=== PATIENT | female | born 1975 | race Caucasian/White ===

== ENCOUNTER 2017-09-04 01:03 | Emergency (ER) | payer MEDICAID ==
[~2017-09-04] VITALS: Ht 165.1 cm; Wt 59.1 kg
[2017-09-04 01:18] VITALS: BP 111/79
[2017-09-04 02:12] LABS: URINE HCG NEGATIVE (NEG)
== END 2017-09-04 02:47 ==
LOC: ER 01:04
DX: Z32.02 Encounter for pregnancy test, result negative (principal); F17.200 Nicotine dependence, unspecified, uncomplicated; Z88.1 Allergy status to other antibiotic agents
CPT/HCPCS: 81025; 99283; J7030

== ENCOUNTER 2019-06-25 22:51 | Emergency (ER) | payer MEDICAID ==
[~2019-06-25] VITALS: Ht 165.1 cm; Wt 61.4 kg
[~2019-06-25 22:51] MED LIST: ACET1TAB12 PO; AMIT-189 PO; CLON-529 PO; DEXT10TA8 PO; DISU250T7 PO; LORA1TAB PO
[2019-06-25] MEDS ORDERED: magnesium oxide 400mg tablet PO ONE (23:00)
[2019-06-25] MEDS ORDERED: phenobarbital inj 260 MG in normal saline 100ml IV soln 100 ML IV ONE (23:00)
[2019-06-25] MEDS ORDERED: normal saline 1000ML IV soln IVB ONE (23:00)
[2019-06-25] MEDS ORDERED: thiamine 100mg tablet PO ONE (23:00)
[2019-06-25 23:17] LABS: BASOPHILS % (AUTO) 0.7 % (0-1); EOSINOPHILS # (AUTO) 0.1 X10'3 (0-0.9); EOSINOPHILS % (AUTO) 0.9 % (0-6); HEMATOCRIT 35.1 % (35.0-45.0); HEMOGLOBIN 12.3 g/dl (12.0-16.0); LYMPHOCYTES % (AUTO) 27.7 % (21-51); MEAN CORPUSCULAR HEMOGLOBIN 34.2 PG (27.0-31.0); MEAN CORPUSCULAR VOLUME 97.7 FL (78-98); MEAN PLATELET VOLUME 6.6 FL (7.4-10.4); MONOCYTES # (AUTO) 0.5 X10'3 (0-0.9); MONOCYTES % (AUTO) 7.5 % (2-12); NEUTROPHILS # (AUTO) 4.6 X10'3 (1.8-7.7); NEUTROPHILS % (AUTO) 63.2 % (42-75); PLATELET COUNT 284 X10'3 (140-440); RED BLOOD COUNT 3.59 X10'6 (4.20-5.60); RED CELL DISTRIBUTION WIDTH 13.5 % (11.5-14.5); WHITE BLOOD COUNT 7.3 X10'3 (4.5-11.0)
[2019-06-25 23:33] LABS: ALANINE AMINOTRANSFERASE 75 U/L (12-78); ALBUMIN 3.3 G/DL (3.4-5.0); ALKALINE PHOSPHATASE 65 IU/L (46-116); ANION GAP 6 (8-16); ASPARTATE AMINO TRANSFERASE 37 U/L (10-37); BILIRUBIN,TOTAL 0.2 MG/DL (0.1-1.0); BLOOD UREA NITROGEN 20 MG/DL (7-18); BUN/CREATININE RATIO 24.1 (6.6-38.0); CALCIUM 8.3 MG/DL (8.5-10.1); CHLORIDE 106 MMOL/L (99-107); CREATININE 0.83 MG/DL (0.40-0.90); ETHANOL < 0.010 GM/DL (0.0-0.010); GLUCOSE 113 MG/DL (70-104); MAGNESIUM 1.8 MG/DL (1.5-2.4); POTASSIUM 3.7 MMOL/L (3.5-5.1); SODIUM 136 MMOL/L (135-145); TOTAL CARBON DIOXIDE 24.1 MMOL/L (24-32); TOTAL PROTEIN 6.6 G/DL (6.4-8.2); eGFR 75 ML/MIN
[2019-06-26] MEDS ORDERED: phenobarbital inj 130 MG in normal saline 100ml IV soln 100 ML IV ONE ×3 (01:35)
[2019-06-26 03:11] VITALS: BP 112/61
== END 2019-06-26 03:20 | disposition home or self-care (01) ==
LOC: ER 22:52
DX: F10.230 Alcohol dependence with withdrawal, uncomplicated (principal); R56.9 Unspecified convulsions; Z72.89 Other problems related to lifestyle; Z88.1 Allergy status to other antibiotic agents; Z79.899 Other long term (current) drug therapy; Y90.0 Blood alcohol level of less than 20 mg/100 ml
CPT/HCPCS: 36415; 80053; 80320; 82948; 83735; 85025; 93005; 96365; 96366; 99285; J2560; J7030; 99284

== ENCOUNTER 2019-07-03 20:31 | Emergency (ER) | payer MEDICAID ==
[~2019-07-03] VITALS: Ht 165.1 cm; Wt 59.1 kg
[2019-07-03] MEDS ORDERED: TETanus/Pertussis (Acell)/Diphther VAC/PF (Tdap-Adult) 0.5ml syringe IMVAC ONE (20:50)
[2019-07-03] MEDS ORDERED: LIDOcaine 1% W/epiNEPHrine 1:200,000 10ml vial IJ ONE ×2 (20:50)
--- NOTE | 2019-07-03 21:00 | NUR ---
wounds being irragated and blood being cleaned from pt to assess wounds
[2019-07-03 21:27] LABS: BASOPHILS # (AUTO) 0.1 X10'3 (0-0.2); BASOPHILS % (AUTO) 1.2 % (0-1); EOSINOPHILS # (AUTO) 0.1 X10'3 (0-0.9); EOSINOPHILS % (AUTO) 0.6 % (0-6); HEMATOCRIT 41.2 % (35.0-45.0); HEMOGLOBIN 14.1 g/dl (12.0-16.0); LYMPHOCYTES # (AUTO) 2.6 X10'3 (1.1-4.8); LYMPHOCYTES % (AUTO) 31.1 % (21-51); MEAN CORPUSCULAR HEMOGLOBIN 33.1 PG (27.0-31.0); MEAN CORPUSCULAR HGB CONC 34.3 g/dL (33.0-36.5); MEAN CORPUSCULAR VOLUME 96.6 FL (78-98); MEAN PLATELET VOLUME 6.9 FL (7.4-10.4); MONOCYTES # (AUTO) 0.6 X10'3 (0-0.9); MONOCYTES % (AUTO) 7.3 % (2-12); NEUTROPHILS # (AUTO) 5.1 X10'3 (1.8-7.7); NEUTROPHILS % (AUTO) 59.8 % (42-75); PLATELET COUNT 435 X10'3 (140-440); RED BLOOD COUNT 4.26 X10'6 (4.20-5.60); RED CELL DISTRIBUTION WIDTH 13.2 % (11.5-14.5); WHITE BLOOD COUNT 8.4 X10'3 (4.5-11.0)
--- NOTE | 2019-07-03 21:30 | NUR ---
pa at bedside doing sutures with assistance from jung and rn
[2019-07-03 21:40] LABS: ALANINE AMINOTRANSFERASE 108 U/L (12-78); ALBUMIN 4.1 G/DL (3.4-5.0); ALKALINE PHOSPHATASE 64 IU/L (46-116); ANION GAP 12 (8-16); ASPARTATE AMINO TRANSFERASE 57 U/L (10-37); BILIRUBIN,TOTAL 0.2 MG/DL (0.1-1.0); BLOOD UREA NITROGEN 11 MG/DL (7-18); BUN/CREATININE RATIO 9.6 (6.6-38.0); CALCIUM 8.9 MG/DL (8.5-10.1); CHLORIDE 104 MMOL/L (99-107); CREATININE 1.14 MG/DL (0.40-0.90); ETHANOL 0.203 GM/DL (0.0-0.010); GLUCOSE 67 MG/DL (70-104); SODIUM 142 MMOL/L (135-145); TOTAL CARBON DIOXIDE 25.6 MMOL/L (24-32); TOTAL PROTEIN 8.3 G/DL (6.4-8.2); eGFR 52 ML/MIN
[2019-07-03] MEDS ORDERED: HYDROcodone/acetaminophen 5mg/325mg tablet PO ONE (21:40)
--- NOTE | 2019-07-03 22:30 | NUR ---
tech at bedside dressing wounds and getting pt ready for transfer to [facility]
[2019-07-03 23:09] LABS: URINE HCG NEGATIVE (NEG)
[2019-07-03 23:22] LABS: URINE AMPHETAMINE SCREEN NEGATIVE (Neg); URINE BARBITUATE SCREEN POSITIVE (Neg); URINE BENZODIAZEPINES SCREEN NEGATIVE (Neg); URINE CANNABINOID SCREEN NEGATIVE (Neg); URINE COCAINE SCREEN NEGATIVE (Neg); URINE METHADONE SCREEN NEGATIVE (Neg); URINE OPIATE SCREEN NEGATIVE (Neg); URINE PHENCYCLIDINE SCREEN NEGATIVE (Neg)
--- NOTE | 2019-07-04 00:31 | NUR ---
Packet sent to [facility].
--- NOTE | 2019-07-04 02:06 | NUR ---
Pt resting quietly, respirations normal, no s/s of distress.
[2019-07-04] MEDS ORDERED: diphenhydrAMINE 25mg capsule PO ONE (02:50)
[2019-07-04] MEDS ORDERED: HYDROcodone/acetaminophen 5mg/325mg tablet PO ONE (02:50)
--- NOTE | 2019-07-04 06:51 | NUR ---
Patient sleeping supine. No distress observed. RN awoke patient for BG check. 85. Patient calm and cooperative. Continue to monitor.
[2019-07-04 07:07] LABS: CLARITY,URINE CLEAR (Clear); COLOR,URINE YELLOW (Yellow); GLUCOSE, URINE NEGATIVE (Neg); KETONES,URINE NEGATIVE (Neg); LEUKOCYTE ESTERASE ,URINE NEGATIVE (Neg); NITRITES, URINE NEGATIVE (Neg); OCCULT BLOOD,URINE NEGATIVE (Neg); PH,URINE 5.5 (4.8-8.0); PROTEIN,URINE NEGATIVE (Neg); UROBILINOGEN,URINE 0.2 E.U/dL (0.2-1.0)
[2019-07-04 07:10] LABS: UA COLLECTION TYPE CLN CATCH MIDSTREAM
[2019-07-04] MEDS ORDERED: LORA-269 PO (07:12)
[2019-07-04] MEDS ORDERED: MIRT7.5T11 PO (07:12)
[2019-07-04] MEDS ORDERED: LORazepam 1 MG tablet PO PRN (07:20)
[2019-07-04] MEDS ORDERED: LORazepam 0.5 MG tablet PO PRN (07:25)
[2019-07-04] MEDS ORDERED: acetaminophen 325mg tablet PO PRN (08:15)
[2019-07-04 08:32] VITALS: BP 112/64
--- NOTE | 2019-07-04 08:34 | NUR ---
RN gave patient Tylenol for pain. Patient denies suicidal ideation but when she is drinking she is not safe. Patient has HX of PTSD. Patient is awaiting an inpatient treatment program. Patient tearful. Patient had a first time seizure about 1 week ago. Continue to monitor.
[2019-07-04] MEDS: traMADol 50MG tablet PO PRN ×2 (10:41→16:26)
--- NOTE | 2019-07-04 10:45 | NUR ---
Patient given Tramadol for pain. Continue to monitor.
--- NOTE | 2019-07-04 11:14 | NUR ---
Patient sleeping on left side. No distress observed. Continue to monitor.
--- NOTE | 2019-07-04 12:41 | NUR ---
Patient reclining on her side reading magazines. No distress observed. Continue to monitor.
--- NOTE | 2019-07-04 14:10 | NUR ---
Patient awake and reading in bed. No distress observed. Continue to monitor.
--- NOTE | 2019-07-04 15:05 | NUR ---
ERNESTINA Blank evaluating patient. No distress observed. Continue to monitor.
--- NOTE | 2019-07-04 15:49 | NUR ---
Patient to be going home. Mother should be here in an hour to pick her up. Patient is watching a movie. Continue to monitor.
[2019-07-04] MEDS ORDERED: mirtazapine 15mg tablet PO SCH (21:00)
== END 2019-07-04 16:41 | disposition home or self-care (01) ==
LOC: ER 20:32
DX: S61.411A Laceration without foreign body of right hand, initial encounter (principal); Z88.1 Allergy status to other antibiotic agents; Z88.8 Allergy status to other drugs, medicaments and biological substances; Z79.899 Other long term (current) drug therapy; X83.8XXA Intentional self-harm by other specified means, initial encounter; Y93.89 Activity, other specified; Y92.488 Other paved roadways as the place of occurrence of the external cause; Y99.8 Other external cause status
CPT/HCPCS: 12002; 36415; 73130; 80053; 80305; 80320; 81003; 81025; 82948; 85025; 90471; 90715; 99285; Q0163

== ENCOUNTER 2019-07-16 15:21 | Emergency (ER) | payer MEDICAID ==
[~2019-07-16] VITALS: Ht 165.1 cm; Wt 63.0 kg
[~2019-07-16 15:21] MED LIST changes: -ACET1TAB12 PO; -AMIT-189 PO; -CLON-529 PO; -DEXT10TA8 PO; -DISU250T7 PO; +LORA-269 PO; -LORA1TAB PO; +MIRT7.5T11 PO
[2019-07-16 15:26] VITALS: BP 103/77
== END 2019-07-16 16:52 | disposition home or self-care (01) ==
LOC: ER 15:21
DX: S51.811D Laceration without foreign body of right forearm, subsequent encounter (principal); Z72.89 Other problems related to lifestyle; Z88.1 Allergy status to other antibiotic agents; Z79.899 Other long term (current) drug therapy; W25.XXXD Contact with sharp glass, subsequent encounter
CPT/HCPCS: 99281

== ENCOUNTER 2019-07-17 19:06 | Emergency (ER) | payer MEDICAID ==
[~2019-07-17] VITALS: Ht 165.1 cm; Wt 65.1 kg
--- NOTE | 2019-07-17 19:26 | NUR ---
Called poison control - reccommend observation for 4-6 hours with supportive care only
[2019-07-17 19:28] LABS: BASOPHILS # (AUTO) 0.1 X10'3 (0-0.2); BASOPHILS % (AUTO) 0.7 % (0-1); EOSINOPHILS % (AUTO) 0.6 % (0-6); HEMATOCRIT 36.3 % (35.0-45.0); HEMOGLOBIN 12.6 g/dl (12.0-16.0); LYMPHOCYTES # (AUTO) 2.3 X10'3 (1.1-4.8); LYMPHOCYTES % (AUTO) 30.3 % (21-51); MEAN CORPUSCULAR HEMOGLOBIN 34.1 PG (27.0-31.0); MEAN CORPUSCULAR HGB CONC 34.7 g/dL (33.0-36.5); MEAN CORPUSCULAR VOLUME 98.1 FL (78-98); MONOCYTES # (AUTO) 0.4 X10'3 (0-0.9); MONOCYTES % (AUTO) 5.2 % (2-12); NEUTROPHILS # (AUTO) 4.9 X10'3 (1.8-7.7); NEUTROPHILS % (AUTO) 63.2 % (42-75); PLATELET COUNT 341 X10'3 (140-440); RED CELL DISTRIBUTION WIDTH 13.8 % (11.5-14.5); WHITE BLOOD COUNT 7.7 X10'3 (4.5-11.0)
[2019-07-17] MEDS ORDERED: normal saline 1000ML IV soln IVB ONE (19:30)
[2019-07-17 19:39] LABS: PARTIAL THROMBOPLASTIN TIME 27 SECONDS (22-32)
[2019-07-17 19:42] LABS: ALANINE AMINOTRANSFERASE 29 U/L (12-78); ALBUMIN 3.8 G/DL (3.4-5.0); ALKALINE PHOSPHATASE 41 IU/L (46-116); ANION GAP 9 (8-16); ASPARTATE AMINO TRANSFERASE 11 U/L (10-37); BILIRUBIN,TOTAL 0.3 MG/DL (0.1-1.0); BLOOD UREA NITROGEN 9 MG/DL (7-18); CHLORIDE 109 MMOL/L (99-107); CREATININE 0.75 MG/DL (0.40-0.90); ETHANOL 0.051 GM/DL (0.0-0.010); GLUCOSE 67 MG/DL (70-104); POTASSIUM 4.2 MMOL/L (3.5-5.1); SODIUM 143 MMOL/L (135-145); TOTAL CARBON DIOXIDE 25.3 MMOL/L (24-32); TOTAL PROTEIN 7.6 G/DL (6.4-8.2); eGFR 84 ML/MIN
[2019-07-17 19:44] LABS: ACETAMINOPHEN < 2.0 UG/ML (10-30)
--- NOTE | 2019-07-17 20:20 | NUR ---
INFORMED PA OF GLUCOSE LEVEL OF PATIENT.
[2019-07-17] MEDS ORDERED: dextrose 50%-water 50ml dispensing syringe IV ONE (20:25)
[2019-07-17 21:43] LABS: CLARITY,URINE CLEAR (Clear); COLOR,URINE YELLOW (Yellow); GLUCOSE, URINE 500 mg/dl (Neg); KETONES,URINE TRACE mg/dl (Neg); LEUKOCYTE ESTERASE ,URINE NEGATIVE (Neg); NITRITES, URINE NEGATIVE (Neg); OCCULT BLOOD,URINE NEGATIVE (Neg); PH,URINE 5.5 (4.8-8.0); PROTEIN,URINE NEGATIVE (Neg); UROBILINOGEN,URINE 0.2 E.U/dL (0.2-1.0)
[2019-07-17 21:52] LABS: UA COLLECTION TYPE STRAIGHT CATH; URINE AMPHETAMINE SCREEN NEGATIVE (Neg); URINE BARBITUATE SCREEN NEGATIVE (Neg); URINE BENZODIAZEPINES SCREEN NEGATIVE (Neg); URINE CANNABINOID SCREEN POSITIVE (Neg); URINE COCAINE SCREEN NEGATIVE (Neg); URINE METHADONE SCREEN NEGATIVE (Neg); URINE OPIATE SCREEN NEGATIVE (Neg); URINE PHENCYCLIDINE SCREEN NEGATIVE (Neg)
[2019-07-18] MEDS ORDERED: LORAZEPAM PO (05:23)
[2019-07-18] MEDS ORDERED: DIVA-74 PO (05:23)
[2019-07-18] MEDS ORDERED: DIVA-76 PO (05:23)
[2019-07-18] MEDS ORDERED: AMIT150T PO (05:23)
[2019-07-18] MEDS ORDERED: NALT50TA PO (05:23)
[2019-07-18] MEDS: LORazepam 1 MG tablet PO SCH ×4 (13:00→20:19)
--- NOTE | 2019-07-18 14:57 | NUR ---
[facility] at the bedside evaluating pt. Pt was upset after interview because she was not being discharged as she thought she would be at this time. Pt requested her ordered medications, they were given to her at this time. Will advise primary RN.
--- NOTE | 2019-07-18 16:30 | NUR ---
TC FROM [facility] FOR ADDITIONAL INFORMATION ABOUT PATIENT. PATIENT STATES SHE IS ONLY INTERESTED IN A VOLUNTARY PROGRAM. [facility] WOULD BE TAKING HER INVOLUNTARILY BASED ON 5150. MORE INFORMATION TO FOLLOW IF [facility] ACCEPTS PATIENT.
--- NOTE | 2019-07-18 17:11 | NUR ---
TC FROM [facility] WITH INFORMATION THAT [facility] IN [place] WILL BE ACCEPTING PATIENT. TRANSPORTATION ARRANGEMENTS ARE SET FOR 2015 THIS EVENING. ACCEPTING PROVIDER IS KD YOUNG NP AT 1705 TODAY.
[2019-07-18 20:25] VITALS: BP 106/54
[2019-07-18] MEDS ORDERED: divalproex sodium 500mg tablet.DR PO SCH (21:00)
[2019-07-18] MEDS ORDERED: amitriptyline 50mg tablet PO SCH (21:00)
[2019-07-18] MEDS ORDERED: divalproex sodium 250mg tablet PO SCH (21:00)
[2019-07-18] MEDS ORDERED: naltrexone 50mg tablet PO SCH (21:00)
== END 2019-07-18 20:28 ==
LOC: ER 19:07
DX: T42.4X2A Poisoning by benzodiazepines, intentional self-harm, initial encounter (principal); F10.129 Alcohol abuse with intoxication, unspecified; R45.851 Suicidal ideations; Z88.1 Allergy status to other antibiotic agents; Z79.899 Other long term (current) drug therapy; Y90.0 Blood alcohol level of less than 20 mg/100 ml
CPT/HCPCS: 36415; 71045; 80053; 80305; 80320; 80329; 81003; 82948; 85025; 85610; 85730; 93005; 96374; 99285; J7030

== ENCOUNTER 2020-07-12 14:24 | Emergency (ER) | payer MEDICAID ==
[~2020-07-12] VITALS: Ht 165.1 cm; Wt 67.9 kg
[~2020-07-12 14:24] MED LIST changes: +AMIT150T PO; +DIVA-74 PO; +DIVA-76 PO; -LORA-269 PO; +LORAZEPAM PO; -MIRT7.5T11 PO; +NALT50TA PO
[2020-07-12 15:45] LABS: BASOPHILS % (AUTO) 0.4 % (0-1); EOSINOPHILS % (AUTO) 0.4 % (0-6); HEMATOCRIT 38.8 % (35.0-45.0); HEMOGLOBIN 13.2 g/dl (12.0-16.0); LYMPHOCYTES # (AUTO) 2.2 X10'3 (1.1-4.8); LYMPHOCYTES % (AUTO) 27.3 % (21-51); MEAN CORPUSCULAR HEMOGLOBIN 30.9 PG (27.0-31.0); MEAN CORPUSCULAR VOLUME 90.9 FL (78-98); MEAN PLATELET VOLUME 7.3 FL (7.4-10.4); MONOCYTES # (AUTO) 0.5 X10'3 (0-0.9); MONOCYTES % (AUTO) 6.2 % (2-12); NEUTROPHILS # (AUTO) 5.3 X10'3 (1.8-7.7); NEUTROPHILS % (AUTO) 65.7 % (42-75); PLATELET COUNT 321 X10'3 (140-440); RED BLOOD COUNT 4.26 X10'6 (4.20-5.60); RED CELL DISTRIBUTION WIDTH 14.3 % (11.5-14.5); WHITE BLOOD COUNT 8.1 X10'3 (4.5-11.0)
[2020-07-12 15:53] LABS: ALANINE AMINOTRANSFERASE 28 U/L (12-78); ALBUMIN 3.8 G/DL (3.4-5.0); ALKALINE PHOSPHATASE 58 IU/L (46-116); ANION GAP 10 (8-16); ASPARTATE AMINO TRANSFERASE 17 U/L (10-37); BILIRUBIN,TOTAL 0.3 MG/DL (0.1-1.0); BLOOD UREA NITROGEN 11 MG/DL (7-18); BUN/CREATININE RATIO 12.5 (6.6-38.0); CALCIUM 9.3 MG/DL (8.5-10.1); CHLORIDE 104 MMOL/L (99-107); CREATININE 0.88 MG/DL (0.40-0.90); ETHANOL < 0.010 GM/DL (0.0-0.010); GLUCOSE 91 MG/DL (70-104); POTASSIUM 4.2 MMOL/L (3.5-5.1); SODIUM 141 MMOL/L (135-145); TOTAL CARBON DIOXIDE 27.3 MMOL/L (24-32); TOTAL PROTEIN 7.6 G/DL (6.4-8.2); eGFR 70 ML/MIN
[2020-07-12 16:04] LABS: URINE HCG NEGATIVE (NEG)
[2020-07-12 16:06] LABS: CLARITY,URINE CLEAR (Clear); COLOR,URINE STRAW (Yellow); GLUCOSE, URINE NEGATIVE (Neg); KETONES,URINE NEGATIVE (Neg); LEUKOCYTE ESTERASE ,URINE NEGATIVE (Neg); NITRITES, URINE NEGATIVE (Neg); OCCULT BLOOD,URINE NEGATIVE (Neg); PROTEIN,URINE NEGATIVE (Neg); UROBILINOGEN,URINE 0.2 E.U/dL (0.2-1.0)
[2020-07-12 16:10] LABS: URINE AMPHETAMINE SCREEN NEGATIVE (Neg); URINE BARBITUATE SCREEN NEGATIVE (Neg); URINE BENZODIAZEPINES SCREEN NEGATIVE (Neg); URINE CANNABINOID SCREEN POSITIVE (Neg); URINE COCAINE SCREEN NEGATIVE (Neg); URINE METHADONE SCREEN NEGATIVE (Neg); URINE OPIATE SCREEN NEGATIVE (Neg); URINE PHENCYCLIDINE SCREEN NEGATIVE (Neg)
[2020-07-12 16:19] LABS: UA COLLECTION TYPE CLN CATCH MIDSTREAM
[2020-07-12 16:59] VITALS: BP 112/81
== END 2020-07-12 17:02 | disposition home or self-care (01) ==
LOC: ER 14:26
DX: R56.9 Unspecified convulsions (principal); M62.838 Other muscle spasm; F17.200 Nicotine dependence, unspecified, uncomplicated; F12.90 Cannabis use, unspecified, uncomplicated; Z72.89 Other problems related to lifestyle; Z86.69 Personal history of other diseases of the nervous system and sense organs; Z88.1 Allergy status to other antibiotic agents; Z79.899 Other long term (current) drug therapy
CPT/HCPCS: 36415; 80053; 80305; 80320; 81003; 81025; 85025; 99283

== ENCOUNTER 2020-08-08 09:00 | Outpatient (CLI) | payer MEDICAID | END 2020-08-08 23:59 | disposition home or self-care (01) | LOC: RAD 09:00 | PROVIDERS: ATTEND Physician Assistant | DX: R56.9 Unspecified convulsions (principal) | CPT/HCPCS: 95819 ==

== ENCOUNTER 2020-08-20 15:41 | Emergency (ER) | payer MEDICAID ==
[~2020-08-20] VITALS: Ht 165.1 cm; Wt 63.6 kg
[2020-08-20 16:09] VITALS: BP 109/73
[2020-08-20 16:47] LABS: CLARITY,URINE CLEAR (Clear)
[2020-08-20 16:48] LABS: COLOR,URINE ORANGE (Yellow); UA COLLECTION TYPE CLN CATCH MIDSTREAM
[2020-08-20 16:58] LABS: BACTERIA,URINE FEW /HPF (Neg); MUCUS STRANDS NONE SEEN /LPF (Neg); RBC,URINE NONE SEEN /HPF (0-2); SQUAMOUS EPITHELIAL CELL,UR FEW /LPF (FEW); WBC,URINE 0-4 /HPF (0-4)
--- NOTE | 2020-08-20 18:03 | NUR ---
PATIENT C/I PERSISTENT UTI SYMPTOMS WITH VAGINAL IRRITATION/PAIN. HX RECENT UTI AND WAS GIVEN KEFLEX AND THEN MACROBID. STATES URINARY PROBLEM PERSISTS.
[2020-08-20] MEDS ORDERED: METR-159 PO (18:36)
== END 2020-08-20 18:47 | disposition home or self-care (01) ==
LOC: ER 15:41
DX: N76.0 Acute vaginitis (principal); R10.84 Generalized abdominal pain; F12.90 Cannabis use, unspecified, uncomplicated; Z86.69 Personal history of other diseases of the nervous system and sense organs; Z72.89 Other problems related to lifestyle; Z88.1 Allergy status to other antibiotic agents; Z79.2 Long term (current) use of antibiotics; Z79.899 Other long term (current) drug therapy
CPT/HCPCS: 81001; 99283